=== PATIENT | male | born 1960 | race Caucasian/White ===

== ENCOUNTER 2021-03-03 00:39 | Day surgery (SDC) | payer BC, SELFPAY ==
[2021-02-23 11:52] VITALS: BMI 40.0
--- NOTE | 2021-03-02 13:45 | PM.HPGS ---
History of Present Illness History of Present Illness Consent: Risks, benefits, and alternatives have been discussed and questions answered. Patient agrees to proceed with procedure. Chief complaint: family hx of colon ca Narrative: Steve Gardner is a 60 year old male with family history of colon cancer, his father Review of Systems Review of Systems: All systems reviewed & are unremarkable except as noted in HPI and below PMFSH Past Medical History Medical History DVT (deep venous thrombosis) HTN (hypertension) Hyperlipidemia Morbid obesity Surgical History Surgical History H/O colonoscopy Social History Social History Smoking status: Never smoker Alcohol intake: current Drinks per week: 2 Alcohol use details: BEERS Substance use: never Substance use type: does not use Living arrangements: alone Spiritual care concerns: No Meds Home Medications and Allergies Home Medications Medication Instructions Recorded Confirmed Type Adults Multivitamin 1 tab-cap PO DAILY 02/23/21 03/03/21 History apixaban [Eliquis] 5 mg PO BID 02/23/21 03/03/21 History ascorbate calcium (vitamin C) 500 mg PO DAILY 02/23/21 03/03/21 History atorvastatin 40 mg PO DAILY 02/23/21 03/03/21 History hydrocodone-acetaminophen 1 tablet PO TID PRN 02/23/21 03/03/21 History lisinopril 20 mg PO DAILY 02/23/21 03/03/21 History Allergies Allergy/AdvReac Type Severity Reaction Status Date / Time No Known Allergies Allergy Verified 03/03/21 07:40 Exam Resp: Auscultation: clear to auscultation bilaterally Cardio: Rate: regular rate Rhythm: regular rhythm GI: GI Palp: Yes Soft to palpation and No Tenderness to palpation present (GI) Assessment and Plan Assessment and plan (1) Colon cancer screening: Code(s): Z12.11 - Encounter for screening for malignant neoplasm of colon Status: Acute Assessment and Plan: Colonoscopy with possible biopsy or polypectomy or cautery or injection of substances.
[2021-03-03 07:41] VITALS: BP 158/83; PULSE 57; RESP 18; TEMP 37.3; O2SAT 99; BMI 39.8
[2021-03-03] MEDS: LACTATED RINGERS 1,000 ML 150 ML IV CONT (07:48)
--- NOTE | 2021-03-03 07:59 | WPDANESEPPF ---
Anes - Initial Pre Proc Eval Procedure: Operation Date: 03/03/21 09:00 Proposed Procedures p Screening Colonoscopy - Tai Cotter MD Date/Time: 03/03/21 07:59 Surgeon: Tai Cotter MD Pre Op Diagnosis: family hx of colon ca Patient Data Age: 60 Gender: M Height: 1.88 m Weight: 140.8 kg Last Vital Signs Temp 37.3 C 03/03/21 07:41 Pulse 57 L 03/03/21 07:41 Resp 18 03/03/21 07:41 BP 158/83 H 03/03/21 07:41 Pulse Ox 99 03/03/21 07:41 Allergies Allergy/AdvReac Type Severity Reaction Status Date / Time No Known Allergies Allergy Verified 03/03/21 07:40 Home Medications Medication Instructions Recorded Confirmed Type Adults Multivitamin 1 tab-cap PO DAILY 02/23/21 03/03/21 History apixaban [Eliquis] 5 mg PO BID 02/23/21 03/03/21 History ascorbate calcium (vitamin C) 500 mg PO DAILY 02/23/21 03/03/21 History atorvastatin 40 mg PO DAILY 02/23/21 03/03/21 History hydrocodone-acetaminophen 1 tablet PO TID PRN 02/23/21 03/03/21 History lisinopril 20 mg PO DAILY 02/23/21 03/03/21 History Patient hx anesthesia problems: none Family hx anesthesia problems: none Results Review: All pre-operative results and documents have been reviewed as part of the pre-operative evaluation. [facility] Past Medical History Medical History (Updated 03/03/21 @ 07:59 by Rolan Mills MD) DVT (deep venous thrombosis) HTN (hypertension) Hyperlipidemia Morbid obesity Surgical History Surgical History (Updated 03/03/21 @ 08:00 by Rolan Mills MD) H/O colonoscopy Social History Social History Smoking status: Never smoker Alcohol intake: current Drinks per week: 2 Alcohol use details: BEERS Substance use: never Substance use type: does not use Living arrangements: alone Spiritual care concerns: No Anes - Eval Final PreProcedure Day of Procedure 03/03/21 07:59 Patient weight: morbidly obese Heart: regular rate and rhythm Lungs: clear to auscultation Airway: Mallampati scale class III Neurological: alert and oriented Last oral intake: >/= 8 hours ASA classification: III Emergent: no Anesthetic plan: proceed Anesthesia type and monitoring: general GIVS and standard monitoring Results Review: All pre-operative results and documents have been reviewed as part of the pre-operative evaluation. Informed Consent: The patient's anesthetic plan and its attendant risks and benefits were discussed with the patient/family/POA. Questions were solicited and answers provided to the satisfaction of the patient/family/POA.
[2021-03-03 09:04] VITALS: BP 124/79; PULSE 66; RESP 21; O2SAT 98
[2021-03-03 09:14] VITALS: BP 133/75; PULSE 58; RESP 21; O2SAT 100
[2021-03-03 09:24] VITALS: BP 135/81; PULSE 55; RESP 19; O2SAT 100
== END 2021-03-03 09:38 | disposition home or self-care (01) ==
PROVIDERS: PCP Internal Medicine; Visit Provider Internal Medicine Gastroenterology
PROC: 0DJD8ZZ Inspection of Lower Intestinal Tract, Via Natural or Artificial Opening Endoscopic (ICD-10-PCS; CPT 45378; principal; 2021-03-03 09:00)
DX: Z12.11 Encounter for screening for malignant neoplasm of colon (principal); D12.4 Benign neoplasm of descending colon; Z80.0 Family history of malignant neoplasm of digestive organs; Z79.01 Long term (current) use of anticoagulants; Z86.718 Personal history of other venous thrombosis and embolism; I10 Essential (primary) hypertension; E78.5 Hyperlipidemia, unspecified; E66.9 Obesity, unspecified; Z68.39 Body mass index [BMI] 39.0-39.9, adult
CPT/HCPCS: 45385; 88305; J2001; J2704; J7120

== ENCOUNTER 2021-03-05 08:22 | Emergency (ER) | payer BC, SELFPAY ==
[2021-03-05 08:39] VITALS: BP 183/93; PULSE 77; RESP 18; O2SAT 100
--- NOTE | 2021-03-05 10:57 | PC.NURSE ---
Pt states he is not having any trouble swallowing saliva. Wants to go home and return if he has difficulty swallowing. Ambulatory out of dept with steady gait.
== END 2021-03-05 11:02 | disposition left against medical advice (07) ==
PROVIDERS: Emergency Provider Nurse Practitioner; PCP Internal Medicine
DX: R09.89 Other specified symptoms and signs involving the circulatory and respiratory systems (principal)
CPT/HCPCS: 99199